=== PATIENT | female | born 1975 | race Two or more races ===

== ENCOUNTER 2016-07-05 02:43 | Emergency (ER) | payer OTHER ==
[~2016-07-05] VITALS: Ht 160 cm; Wt 60.8 kg
[~2016-07-05 02:43] MED LIST: FAMO-63 PO
[2016-07-05 03:00] VITALS: BP 120/66
[2016-07-05 03:30] LABS: BILIRUBIN,URINE NEGATIVE (NEG); GLUCOSE,URINE NEGATIVE (NEG); NITRITE,URINE NEGATIVE (NEG); PROTEIN,URINE NEGATIVE (NEG-TRACE)
[2016-07-05 03:31] LABS: NEG OBC UR NEG; POS OBC UR POS
[2016-07-05 03:40] LABS: BACTERIA,URINE 0 /HPF (0-FEW); SQUAMOUS EPITHELIAL CELL,UR MOD /LPF
--- NOTE | 2016-07-05 04:21 | RAD ---
PQRS STATEMENT One or more of the following individualized dose reduction techniques were utilized for this study: 1.Automated exposure control. 2.Adjustment of the mA and/orkVaccording to patient size. 3.Use of iterative reconstruction technique CT ABDOMEN/PELVIS Indication:diffused abdomen and flank pain; radiates to back. nausea
evaluate kidney stone
rtr-dixon Reason: diffuse abd pain/flank pain radiates to back; nausea. eval. kidney stone / Spl. Instructions: / History: Technique: Multiple contiguous axial images were obtained through the abdomen and pelvis. Coronal reformations were created. Comparison:None Findings: The heart size is normal. The lung bases are clear. Evaluation of the abdominal viscera is limited in the absence of IV contrast.The liver and spleen are normal in size. The gallbladder is nondistended. The pancreas, and adrenal glands are within normal limits. The kidneys are unremarkable. There is no abdominopelvic ascites. Abdominal aorta is normal in caliber. The bowel loops are normal in caliber. The appendix is normal. Urinary bladder is within normal limits. No destructive osseous lesions are identified. There is a chondroid matrix lesion in the proximal right femur. No cortical expansion or periosteal thickening. An intrauterine contraceptive device is in place. Impression: - Negative for obstructive uropathy. - Normal appendix. - No ascites or inflammatory mass. - Chondroid matrix lesion in the right proximal femur. If there is pain associated with this lesion consider MRI. Electronically signed by: Haile Mackey (Jul 05, 2016 04:20:46)
[2016-07-05] MEDS ORDERED: IBUP-1007 PO (04:37)
--- NOTE | 2016-07-05 04:37 | PHYS DOC ---
Past Medical History Past Medical History: No Pertinent History Past Surgical History: Other Additional Past Surgical Histo: l arm surgery Alcohol Use: None Drug Use: None Adult General Chief Complaint Chief Complaint: FLANK PAIN HPI HPI Patient is a 40 year old female with no past medical history presents to the ER today complaining of pain 1 day to both flank area. Patient denies any history of hypertension diabetes liver lung or kidney problems. Patient denies any surgeries to her abdomen or pelvis. Patient does not smoke drink or do any drugs. Patient is currently not on any medications. Patient denies any fevers shaking chills. Patient reports she is nauseous with vomiting. Patient denies any diarrhea or constipation. Patient has any dysuria frequency or urgency. Patient reports she's had intermittent flank pain. Left and right side times approximately one day. She is able tolerate by mouth's well. Review of Systems Review of Systems Constitutional: Denies fever or chills [] Eyes: Denies change in visual acuity, redness, or eye pain [] All other review of systems are negative except as documented in the history of present illness portion. Allergies Allergies Allergies Coded Allergies Type Severity Reaction Last Updated Verified No Known Drug Allergies 10/25/14 No Physical Exam Physical Exam Constitutional: Well developed, well nourished, no acute distress, non-toxic appearance. [] HENT: Normocephalic, atraumatic, bilateral external ears normal, oropharynx moist, no oral exudates, nose normal. [] Eyes: PERRLA, EOMI, conjunctiva normal, no discharge. [] Neck: Normal range of motion, no tenderness, supple, no stridor. [] Cardiovascular:Heart rate regular rhythm, no murmur [] Lungs & Thorax: Bilateral breath sounds clear to auscultation [] Abdomen: Bowel sounds normal, soft, no tenderness, no masses, no pulsatile masses. [] Skin: Warm, dry, no erythema, no rash. [] Back: No tenderness, no CVA tenderness. [] Extremities: No tenderness, no cyanosis, no clubbing, ROM intact, no edema. [] Neurologic: Alert and oriented X 3, normal motor function, normal sensory function, no focal deficits noted. [] Psychologic: Affect normal, judgement normal, mood normal. [] Abdominal exam soft nontender no rebound or guarding. Patient does have some mild tenderness to both flank regions. Patient has no rebound or guarding. Patient does not exhibiting any signs or symptoms of be consistent with an acute surgical abdomen. Current Patient Data Vital Signs Vital Signs Date Time Temp Pulse Resp B/P Pulse Ox O2 Delivery O2 Flow Rate FiO2 07/05/16 03:00 97.9 63 16 120/66 99 Room Air 97.9 Lab Values Laboratory Tests Test 07/05/16 02:49 Urine Collection Type Unknown Urine Color Yellow Urine Clarity Clear Urine pH 6.0 Urine Specific [place] 1.015 Urine Protein Negativemg/dL (NEG-TRACE) Urine Glucose (UA) Negativemg/dL (NEG) Urine Ketones (Stick) Negativemg/dL (NEG) Urine Blood Trace (NEG) Urine Nitrite Negative (NEG) Urine Bilirubin Negative (NEG) Urine Urobilinogen Dipstick 1.0mg/dL (0.2 mg/dL) Urine Leukocyte Esterase Trace (NEG) Urine RBC 1-2/HPF (0-2) Urine WBC 1-4/HPF (0-4) Urine Squamous Epithelial Cells Mod/LPF Urine Bacteria 0/HPF (0-FEW) Urine Mucus Slight/LPF Urine Test Negative (NEG) EKG EKG [] Radiology/Procedures Radiology/Procedures [] CT scan of the abdomen and pelvis revealed no acute pathology. Course & Med Decision Making Course & Med Decision Making Pertinent Labs and Imaging studies reviewed. (See chart for details) [] This is a 40-year-old female who presents to the ER today complaining of vague abdominal and flank discomfort. Patient's workup in the ER is unremarkable. Patient is CT scan that was unremarkable for any acute pathology to her kidneys pancreas liver spleen or appendix. Patient's UA did not reveal any signs or symptoms that would be consistent with a urinary tract infection. Patient be discharged home with ibuprofen and is instructed to follow up with her primary care physician within one to 2 days. Dragon Disclaimer Dragon Disclaimer This electronic medical record was generated, in whole or in part, using a voice recognition dictation system. Departure Departure Impression: Primary Impression: Abdominal pain Disposition: HOME, SELF-CARE Condition: IMPROVED Referrals: NO PCP (PCP) Patient Instructions: Abdominal Pain Scripts Ibuprofen 600 Mg [id number] Mg PO PRN Q6HRS PRN INFLAMMATION #20 TAB Prov:LUNA TORRES MD 07/05/16 LUNA TORRES MD Jul 05, 2016 04:37
== END 2016-07-05 04:50 | disposition home or self-care (01) ==
LOC: ER 02:43
DX: R10.9 Unspecified abdominal pain (principal); R11.2 Nausea with vomiting, unspecified
CPT/HCPCS: 74176; 81001; 81025; 99285-25

== ENCOUNTER 2017-03-20 00:32 | Emergency (ER) | payer SELFPAY ==
[~2017-03-20 00:32] MED LIST changes: +IBUP-1007 PO
[2017-03-20 00:35] VITALS: BP 116/65
--- NOTE | 2017-03-20 01:05 | PHYS DOC ---
Past Medical History Past Medical History: No Pertinent History Past Surgical History: Other Additional Past Surgical Histo: l arm surgery Alcohol Use: None Drug Use: None Adult General Chief Complaint Chief Complaint: OTHER COMPLAINTS HPI HPI Patient is a 41 year old female presents with complaints of not being able to sleep today. Unfortunately we have limited information because the language line does have a reed fixer for her baseline which the patient speaks some Latvian. Patient denies any pain, fever, vomiting. Patient states she is here because she couldn't sleep tonight, she says that recently that is been some recent deaths of people that she knows. Review of Systems Review of Systems Constitutional: Denies fever or chills . Unable to sleep tonight Eyes: Denies change in visual acuity, redness, or eye pain [] HENT: Denies pain Respiratory: Denies cough Cardiovascular: No pain GI: Denies abdominal pain, or vomiting : Denies dysuria or hematuria [] Musculoskeletal: Denies back pain or joint pain [] Integument: Denies rash or skin lesions [] Neurologic: Denies headache, focal weakness or sensory changes [] Endocrine: Denies polyuria or polydipsia [ Allergies Allergies Allergies Coded Allergies Type Severity Reaction Last Updated Verified No Known Drug Allergies 10/25/14 No Physical Exam Physical Exam Constitutional: Well developed, well nourished, no acute distress, non-toxic appearance. [] HENT: Normocephalic, atraumatic,oropharynx moist, no oral exudates, nose normal. [] Eyes: PERRLA, EOMI, conjunctiva normal, no discharge. [] Neck: Normal range of motion, no tenderness, supple, no stridor. No LAD, no meningeal signs Cardiovascular:Heart rate regular rhythm, no murmur, equal pulses, normal perfusion Lungs & Thorax: Bilateral breath sounds clear to auscultation no tachypnea Abdomen: Bowel sounds normal, soft, no tenderness, no masses, no pulsatile masses. [] Skin: Warm, dry, no erythema, no rash. [] Back: No tenderness, no CVA tenderness. [] Extremities: No tenderness, no cyanosis, no CT ROM intact, no edema. [] Neurologic: Alert and oriented X 3, normal motor function, Lasix in the ED with normal gait and without assistance no focal deficits noted. [] Psychologic: Affect normal, mood normal. [] EKG EKG [] Radiology/Procedures Radiology/Procedures [] Course & Med Decision Making Course & Med Decision Making Pertinent Labs and Imaging studies reviewed. (See chart for details) [] Dragon Disclaimer Dragon Disclaimer This electronic medical record was generated, in whole or in part, using a voice recognition dictation system. Departure Departure Impression: Primary Impression: Stress reaction Additional Impression: Insomnia Disposition: 01 HOME, SELF-CARE Condition: STABLE Referrals: NO PCP (PCP) His follow-up with your doctor for recheck and reevaluation in 2 days Patient Instructions: Adjustment Disorder, Insomnia-Brief Problem Qualifiers Diamond MUNSON MD Mar 20, 2017 01:04
[2017-03-20] MEDS ORDERED: LORazepam 1 MG TABLET PO ONE (01:15)
== END 2017-03-20 01:20 | disposition home or self-care (01) ==
LOC: ER 00:32
DX: F43.9 Reaction to severe stress, unspecified (principal); G47.00 Insomnia, unspecified
CPT/HCPCS: 99282

== ENCOUNTER 2017-08-26 22:28 | Emergency (ER) | payer OTHER ==
[2017-08-27] MEDS: IV NORMAL SALINE 1000ML BAG 1,000 ML IV (01:23)
[2017-08-27 01:27] LABS: ADD MAN DIFF? NO
[2017-08-27 01:30] LABS: BASO % 0 % (0-3); EOS # 0.1 x10^3/uL (0.0-0.7); EOS % 1 % (0-3); HEMATOCRIT 39.8 % (36.0-47.0); HEMOGLOBIN 13.5 g/dL (12.0-15.5); LYMPH # 1.6 x10^3/uL (1.0-4.8); LYMPH % 16 % (24-48); MEAN CORPUSCULAR HEMOGLOBIN 30 pg (25-35); MEAN CORPUSCULAR HGB CONC 34 g/dL (31-37); MEAN CORPUSCULAR VOLUME 87 fL (79-100); MONO # 0.5 x10^3/uL (0.0-1.1); MONO % 5 % (0-9); NEUT # 7.7 x10^3uL (1.8-7.7); NEUT % 78 % (31-73); PLATELET COUNT 203 x10^3/uL (140-400); RED BLOOD COUNT 4.57 x10^6/uL (3.50-5.40); WHITE BLOOD COUNT 9.9 x10^3/uL (4.0-11.0)
[2017-08-27 01:31] LABS: BILIRUBIN,URINE NEGATIVE (NEG); CLARITY,URINE CLEAR; COLOR,URINE YELLOW; GLUCOSE,URINE NEGATIVE (NEG); NITRITE,URINE NEGATIVE (NEG); PH,URINE 6.5; PROTEIN,URINE NEGATIVE (NEG-TRACE)
[2017-08-27 01:39] LABS: BACTERIA,URINE 0 /HPF (0-FEW); RBC,URINE 0 /HPF (0-2); SQUAMOUS EPITHELIAL CELL,UR FEW /LPF; WBC,URINE 0 /HPF (0-4)
[2017-08-27 01:40] LABS: ANION GAP 7 (6-14); BLOOD UREA NITROGEN 15 mg/dL (7-20); CALCIUM 9.2 mg/dL (8.5-10.1); CARBON DIOXIDE 27 mmol/L (21-32); CHLORIDE 105 mmol/L (98-107); CREATININE 0.6 mg/dL (0.6-1.0); GFR 110.2; GLUCOSE 103 mg/dL (70-99); POTASSIUM 3.6 mmol/L (3.5-5.1); SODIUM 139 mmol/L (136-145)
[2017-08-27 01:53] LABS: TROPONINI < 0.017 ng/mL (0.000-0.055)
[2017-08-27 01:55] LABS: THYROID STIM HORMONE (TSH) 1.178 uIU/mL (0.358-3.74)
== END 2017-08-27 03:12 | disposition home or self-care (01) ==
LOC: ER 22:28
DX: R42 Dizziness and giddiness (principal); E86.0 Dehydration; R55 Syncope and collapse; R11.0 Nausea
CPT/HCPCS: 36415; 71045; 80048; 81001; 84443; 84484; 85025; 93005; 96360; 96361; 99285-25; J7030

== ENCOUNTER 2018-09-28 01:25 | Inpatient (IN) | payer OTHER ==
[~2018-09-28] VITALS: Ht 160 cm; Wt 65.5 kg
[2018-09-28 02:22] LABS: BASO % 0 % (0-3); EOS % 0 % (0-3); HEMATOCRIT 41.5 % (36.0-47.0); HEMOGLOBIN 13.7 g/dL (12.0-15.5); LYMPH # 1.5 x10^3/uL (1.0-4.8); LYMPH % 15 % (24-48); MEAN CORPUSCULAR HEMOGLOBIN 29 pg (25-35); MEAN CORPUSCULAR HGB CONC 33 g/dL (31-37); MEAN CORPUSCULAR VOLUME 88 fL (79-100); MONO # 0.6 x10^3/uL (0.0-1.1); MONO % 6 % (0-9); NEUT # 7.8 x10^3uL (1.8-7.7); NEUT % 78 % (31-73); PLATELET COUNT 233 x10^3/uL (140-400); RED CELL DISTRIBUTION WIDTH 13.5 % (11.5-14.5)
[2018-09-28 02:23] LABS: BILIRUBIN,URINE NEGATIVE (NEG); CLARITY,URINE CLOUDY; COLOR,URINE YELLOW; NITRITE,URINE NEGATIVE (NEG); PROTEIN,URINE 30 mg/dL (NEG-TRACE)
[2018-09-28 02:30] LABS: AMPHETAMINE/METHAMPHETAMINE NEG (NEG); BARBITURATES NEG (NEG); BENZODIAZEPINES NEG (NEG); CANNABINOIDS NEG (NEG); COCAINE NEG (NEG); METHADONE NEG (NEG); OPIATES NEG (NEG); PHENCYCLIDINE NEG (NEG)
[2018-09-28] MEDS ORDERED: IV NORMAL SALINE 1000ML BAG 1,000 ML IV ONE (02:30)
[2018-09-28 02:32] LABS: BACTERIA,URINE MANY /HPF (0-FEW); RBC,URINE OCC /HPF (0-2); WBC,URINE 20-40 /HPF (0-4)
[2018-09-28 02:33] LABS: SQUAMOUS EPITHELIAL CELL,UR MOD /LPF
[2018-09-28 02:35] LABS: ALBUMIN 4.5 g/dL (3.4-5.0); ALBUMIN/GLOBULIN RATIO 1.1 (1.0-1.7); CREATININE 0.6 mg/dL (0.6-1.0); GFR 109.6; TOTAL BILIRUBIN 0.7 mg/dL (0.2-1.0); TOTAL PROTEIN 8.7 g/dL (6.4-8.2)
[2018-09-28 02:36] LABS: POTASSIUM 2.5 mmol/L (3.5-5.1)
[2018-09-28] MEDS: POTASSIUM CHLORIDE 10MEQ 100 ML IV SCH ×2 (02:46→04:14)
[2018-09-28 03:52] LABS: U PREG PATIENT NEGATIVE (NEG)
--- NOTE | 2018-09-28 04:09 | RAD ---
CT head without contrast HISTORY: Altered mental status, urinary tract infection. PQRS statement: CT scans at this facility use dose reduction including either automated exposure control, iterative reconstructions, and /or weight based radiation dosing via mA and kV modification when appropriate to reduce radiation dose to as low as reasonably achievable. TECHNIQUE: [address] imaging skull base to vertex. FINDINGS: No intracranial hemorrhage, mass, hydrocephalus or infarction. No acute ischemic change. 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 Orbits, mastoids unremarkable. IMPRESSION: No acute intracranial CT abnormality. Electronically signed by: Tyrell Fernandez MD (09/28/2018 4:06 AM) [facility]
--- NOTE | 2018-09-28 04:53 | PHYS DOC ---
Past Medical History Past Medical History: No Pertinent History Past Surgical History: Other Additional Past Surgical Histo: L arm surgery Alcohol Use: None Drug Use: None Adult General Chief Complaint Chief Complaint: PSYCH EVALUATION [facility] HPI Patient is a 42-year-old female who presents with family with concerns of confusion and not eating well for the last few days. Patient's primary language is Hmong and fuse cup expander service was utilized to obtain history. Patient reported no complaints but told the fuse cup expander that she needed prayers. indicates that patient has not been acting appropriately over the last couple of days, has been confused and has not been eating or drinking. There has been no report of vomiting or diarrhea. Patient denies being in any pain. Additional history is limited as patient is very poor historian. Review of Systems Review of Systems Constitutional: Denies fever or chills [] Respiratory: Denies cough or shortness of breath [] Cardiovascular: No additional information not addressed in HPI [] GI: Denies abdominal pain, nausea, vomiting or diarrhea [] Musculoskeletal: Denies back pain or joint pain [] Neurologic: Positive confusion/mental status changes [] All other systems were reviewed and found to be within normal limits, except as documented in this note. Current Medications Current Medications Current Medications Medications (Trade) Dose Ordered Sig/Venkata Start Time Stop Time Status Last Admin Dose Admin Potassium Chloride/Water 100 ml @ 100 mls/hr Q1H 09/28/18 03:00 09/28/18 05:00 DC 09/28/18 04:14 100 MLS/HR Sodium Chloride 1,000 ml @ 1,000 mls/hr 1X ONCE 09/28/18 02:30 09/28/18 03:29 DC 09/28/18 02:21 1,000 MLS/HR Allergies Allergies Allergies Coded Allergies Type Severity Reaction Last Updated Verified No Known Drug Allergies 10/25/14 No Physical Exam Physical Exam Constitutional: Well developed, well nourished, no acute distress, non-toxic appearance. [] HENT: Normocephalic, atraumatic, bilateral external ears normal, oropharynx moist, no oral exudates, nose normal. [] Eyes: PERRLA, EOMI, conjunctiva normal, no discharge. [] Neck: Normal range of motion, no tenderness, supple, no stridor. [] Cardiovascular:Heart rate regular rhythm, no murmur [] Lungs & Thorax: Bilateral breath sounds clear to auscultation [] Abdomen: Bowel sounds normal, soft, no tenderness. [] Skin: Warm, dry, no erythema, no rash. [] Extremities: No tenderness, no cyanosis, no clubbing, ROM intact. [] Neurologic: Disoriented, no focal deficits noted. [] Current Patient Data Vital Signs Vital Signs Date Time Temp Pulse Resp B/P (MAP) Pulse Ox O2 Delivery O2 Flow Rate FiO2 09/28/18 04:30 84 16 129/73 (91) 100 Room Air 09/28/18 02:23 98.2 98.2 Lab Values Laboratory Tests Test 09/28/18 02:15 White Blood Count 10.0 x10^3/uL (4.0-11.0) Red Blood Count 4.70 x10^6/uL (3.50-5.40) Hemoglobin 13.7 g/dL (12.0-15.5) Hematocrit 41.5 % (36.0-47.0) Mean Corpuscular Volume 88 fL (79-100) Mean Corpuscular Hemoglobin 29 pg (25-35) Mean Corpuscular Hemoglobin Concent 33 g/dL (31-37) Red Cell Distribution Width 13.5 % (11.5-14.5) Platelet Count 233 x10^3/uL (140-400) Neutrophils (%) (Auto) 78 % (31-73) H Lymphocytes (%) (Auto) 15 % (24-48) L Monocytes (%) (Auto) 6 % (0-9) Eosinophils (%) (Auto) 0 % (0-3) Basophils (%) (Auto) 0 % (0-3) Neutrophils # (Auto) 7.8 x10^3uL (1.8-7.7) H Lymphocytes # (Auto) 1.5 x10^3/uL (1.0-4.8) Monocytes # (Auto) 0.6 x10^3/uL (0.0-1.1) Eosinophils # (Auto) 0.0 x10^3/uL (0.0-0.7) Basophils # (Auto) 0.0 x10^3/uL (0.0-0.2) Urine Collection Type Unknown Urine Color Yellow Urine Clarity Cloudy Urine pH 6.0 Urine Specific [place] 1.015 Urine Protein 30 mg/dL (NEG-TRACE) Urine Glucose (UA) Negative mg/dL (NEG) Urine Ketones (Stick) 40 mg/dL (NEG) Urine Blood Large (NEG) Urine Nitrite Negative (NEG) Urine Bilirubin Negative (NEG) Urine Urobilinogen Dipstick 1.0 mg/dL (0.2 mg/dL) Urine Leukocyte Esterase Moderate (NEG) Urine RBC Occ /HPF (0-2) Urine WBC 20-40 /HPF (0-4) Urine Squamous Epithelial Cells Mod /LPF Urine Bacteria Many /HPF (0-FEW) Urine Mucus Mod /LPF Urine Test Negative (NEG) Sodium Level 139 mmol/L (136-145) Potassium Level 2.5 mmol/L (3.5-5.1) *L Chloride Level 102 mmol/L (98-107) Carbon Dioxide Level 26 mmol/L (21-32) Anion Gap 11 (6-14) Blood Urea Nitrogen 9 mg/dL (7-20) Creatinine 0.6 mg/dL (0.6-1.0) Estimated GFR (Cockcroft-Gault) 109.6 BUN/Creatinine Ratio 15 (6-20) Glucose Level 128 mg/dL (70-99) H Calcium Level 9.0 mg/dL (8.5-10.1) Magnesium Level 2.0 mg/dL (1.8-2.4) Total Bilirubin 0.7 mg/dL (0.2-1.0) Aspartate Amino Transferase (AST) 16 U/L (15-37) Alanine Aminotransferase (ALT) 14 U/L (14-59) Alkaline Phosphatase 52 U/L (46-116) Total Protein 8.7 g/dL (6.4-8.2) H Albumin 4.5 g/dL (3.4-5.0) Albumin/Globulin Ratio 1.1 (1.0-1.7) Urine Opiates Screen Neg (NEG) Urine Methadone Screen Neg (NEG) Urine Barbiturates Neg (NEG) Urine Phencyclidine Screen Neg (NEG) Urine Amphetamine/Methamphetamine Neg (NEG) Urine Benzodiazepines Screen Neg (NEG) Urine Cocaine Screen Neg (NEG) Urine Cannabinoids Screen Neg (NEG) Urine Ethyl Alcohol Neg (NEG) Laboratory Tests 09/28/18 02:15 Laboratory Tests 09/28/18 02:15 EKG EKG [] Radiology/Procedures Radiology/Procedures [] Impressions: PROCEDURE: CT HEAD WO CONTRAST CT head without contrast HISTORY: Altered mental status, urinary tract infection. PQRS statement: CT scans at this facility use dose reduction including either automated exposure control, iterative reconstructions, and /or weight based radiation dosing via mA and kV modification when appropriate to reduce radiation dose to as low as reasonably achievable. TECHNIQUE: [address] imaging skull base to vertex. FINDINGS: No intracranial hemorrhage, mass, hydrocephalus or infarction. No acute ischemic change. 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 Orbits, mastoids unremarkable. IMPRESSION: No acute intracranial CT abnormality. Electronically signed by: Tyrell Fernandez MD (09/28/2018 4:06 AM) Course & Med Decision Making Course & Med Decision Making Pertinent Labs and Imaging studies reviewed. (See chart for details) [] Dragon Disclaimer Dragon Disclaimer This electronic medical record was generated, in whole or in part, using a voice recognition dictation system. Departure Departure Impression: Primary Impression: Altered mental status Additional Impressions: Hypokalemia UTI (urinary tract infection) Disposition: 09 ADMITTED INPATIENT Admitting Physician: Other (Rosendo) Condition: GOOD Referrals: NO PCP (PCP) Problem Qualifiers Primary Impression: Altered mental status Altered mental status type: disorientation Qualified Codes: R41.0 - Disorientation, unspecified Additional Impressions: UTI (urinary tract infection) Urinary tract infection type: site unspecified Hematuria presence: with hematuria Qualified Codes: N39.0 - Urinary tract infection, site not specified ; R31.9 - Hematuria, unspecified JUN HUDDLESTON Jr. DO Sep 28, 2018 04:53
[2018-09-28] MEDS ORDERED: cefTRIAXone IV Push 1 GM VIAL. IVP ONE (05:30)
[2018-09-28 06:36] VITALS: BP 120/57
[2018-09-28] MEDS: IV NORMAL SALINE 1000ML BAG 1,000 ML IV SCH ×3 (08:41→21:34)
--- NOTE | 2018-09-28 10:11 | NUR ---
K+ still running at shift change, 0700. Rocephine requested for after this was finished at 0800. Talked to Fabienne at 0900, she will send it up as soon as she can.
[2018-09-28 10:35] VITALS: BP 120/79
--- NOTE | 2018-09-28 10:48 | PDOC1 ---
History and Physical Date of Admission Date of Admission DATE: 09/28/18 TIME: 10:48 Identification/Chief Complaint Chief Complaint SEEN IN ER, Patient is a 42-year-old female who presents with family with concerns of confusion and not eating well for the last few days. Patient's primary language is Hmong and [employer] service was utilized to obtain history. Patient reported no complaints but told the farmer [employer] that she needed prayers. indicates that patient has not been acting appropriately over the last couple of days, has been confused and has not been eating or drinking, NOTES NEW BIPOLAR MANIC SYMPTOMS X 3 DAYS, She has not been seeing [facility] X 7 MONTHS Past Medical History Past Medical History Past Medical History Past Medical History: BIPOLAR DISORDER Past Surgical History: Other Additional Past Surgical Histo: L arm surgery Alcohol Use: None Drug Use: None FAMILY HX DEPRESSION Dermatology: No pertinent hx Family History Family History: High Cholestrol, Hypertension Social History Smoke: No ALCOHOL: none Drugs: None, Other (, 4 CHILDREN, IS SUPPORTIVE) Current Problem List Problem List Problems Medical Problems: (1) Altered mental status Status: Acute (2) Hypokalemia Status: Acute (3) UTI (urinary tract infection) Status: Acute Current Medications Current Medications Current Medications Sodium Chloride 1,000 ml @ 1,000 mls/hr 1X ONCE IV Last administered on at 02:21; Start 09/28/18 at 02:30; Stop 09/28/18 at 03:29; Status DC Potassium Chloride/Water 100 ml @ 100 mls/hr Q1H IV Last administered on at 04:14; Start 09/28/18 at 03:00; Stop 09/28/18 at 05:00; Status DC Ceftriaxone Sodium (Rocephin) 1 gm 1X ONCE IVP ; Start 09/28/18 at 05:30; Stop 09/28/18 at 05:31; Status DC Sodium Chloride 1,000 ml @ 125 mls/hr Q8H IV Last administered on 09/28/18at 08 :41; Start 09/28/18 at 05:30; Stop 09/29/18 at 05:29 Active Scripts Active Ibuprofen 600 Mg Tablet 600 Mg PO PRN Q6HRS PRN Pepcid (Famotidine) 20 Mg Tablet 20 Mg PO BID Allergies Allergies: Coded Allergies: No Known Drug Allergies (Unverified , 5/13/15) ROS Review of System Review of Systems Review of Systems Constitutional: Denies fever or chills. [] Eyes: Denies change in visual acuity. [] HENT: Denies nasal congestion or sore throat. [] Respiratory: Denies cough . complaining of shortness of breath. [] Cardiovascular: Denies chest pain or edema. [] GI: Denies abdominal pain, nausea, vomiting, bloody stools or diarrhea. [] : Denies dysuria. [] Musculoskeletal: Denies back pain or joint pain. [] Complaining of generalized fatigue Integument: Denies rash. [] Neurologic: Denies headache, focal weakness or sensory changes. [] Psychiatric: POS anxiety. ACUTE MANIC SYMPTOMS 14 PT ROS OTHERWISE NEG [] General: YES: Fatigue, Appetite PSYCHOLOGICAL ROS: YES: Concentration difficultie, Disorientation, Sleep disturbances Eyes: No Blurry vision, No Decreased vision, No Double vision, No Dry eyes, No Excessive tearing, No Eye Pain, No Itchy Eyes, No Loss of vision, No Photophobia , No Scotomata, No Uses contacts, No Uses glasses, No Other HEENT: No: Heacaches, Visual Changes, Hearing change, Nasal congestion, Nasal discharge, Oral lesions, Sinus pain, Sore Throat, Epistaxis, Sneezing, Snoring, Tinnitus, Vertigo, Vocal changes, Other ALLERGY AND IMMUNOLOGY: No: Hives, Insect Bite Sensitivity, Itchy/Watery Eyes, Nasal Congestion, Post Nasal Drip, Seasonal Allergies, Other Cardiovascular: No Chest Pain, No Palpitations, No Orthopnea, No Paroxysmal Noc. Dyspnea, No Edema, No Lt Headedness, No Other Gastrointestinal: No Nausea, No Vomiting, No Abdominal Pain, No Diarrhea, No Constipation, No Melena, No Hematochezia, No Other Musculoskeletal: No Gait Disturbance, No Joint Pain, No Joint Stiffness, No Joint Swelling, No Muscle Pain, No Muscular Weakness, No Pain In:, No Swelling In:, No Other Neurological: Yes Behavorial Changes Physical Exam Physical Exam Physical Exam Physical Exam Constitutional: Well developed, well nourished, no acute distress, non-toxic appearance. ANXIOUS [] HENT: Normocephalic, atraumatic, bilateral external ears normal, oropharynx moist, no oral exudates, nose normal. [] Eyes: PERRLA, EOMI, conjunctiva normal, no discharge. [] Neck: Normal range of motion, no tenderness, supple, no stridor. [] Cardiovascular:Heart rate regular rhythm, no murmur [] Lungs & Thorax: Bilateral breath sounds clear to auscultation [] Abdomen: Bowel sounds normal, soft, no tenderness. [] Skin: Warm, dry, no erythema, no rash. [] Extremities: No tenderness, no cyanosis, no clubbing, ROM intact. [] Neurologic: Disoriented, no focal deficits noted. [] General: Cooperative, mild distress HEENT: Atraumatic, PERRLA Lungs: Clear to auscultation Heart: RRR, no thrills, no gallops, no murmurs Breasts: Not examined Abdomen: Normal bowel sounds, Soft Rectal Exam: not examined PELVIC: Examination not indicated Extremities: No cyanosis Skin: No rashes Neuro: Normal speech, Cranial nerves 3-12 NL Vitals Vitals Vital Signs Date Time Temp Pulse Resp B/P (MAP) Pulse Ox O2 Delivery O2 Flow Rate FiO2 09/28/18 10:35 98.2 68 17 120/79 (93) 100 Room Air 98.2 Labs Labs Laboratory Tests Test 09/28/18 02:15 White Blood Count 10.0 x10^3/uL (4.0-11.0) Red Blood Count 4.70 x10^6/uL (3.50-5.40) Hemoglobin 13.7 g/dL (12.0-15.5) Hematocrit 41.5 % (36.0-47.0) Mean Corpuscular Volume 88 fL (79-100) Mean Corpuscular Hemoglobin 29 pg (25-35) Mean Corpuscular Hemoglobin Concent 33 g/dL (31-37) Red Cell Distribution Width 13.5 % (11.5-14.5) Platelet Count 233 x10^3/uL (140-400) Neutrophils (%) (Auto) 78 % (31-73) Lymphocytes (%) (Auto) 15 % (24-48) Monocytes (%) (Auto) 6 % (0-9) Eosinophils (%) (Auto) 0 % (0-3) Basophils (%) (Auto) 0 % (0-3) Neutrophils # (Auto) 7.8 x10^3uL (1.8-7.7) Lymphocytes # (Auto) 1.5 x10^3/uL (1.0-4.8) Monocytes # (Auto) 0.6 x10^3/uL (0.0-1.1) Eosinophils # (Auto) 0.0 x10^3/uL (0.0-0.7) Basophils # (Auto) 0.0 x10^3/uL (0.0-0.2) Urine Collection Type Unknown Urine Color Yellow Urine Clarity Cloudy Urine pH 6.0 Urine Specific [place] 1.015 Urine Protein 30 mg/dL (NEG-TRACE) Urine Glucose (UA) Negative mg/dL (NEG) Urine Ketones (Stick) 40 mg/dL (NEG) Urine Blood Large (NEG) Urine Nitrite Negative (NEG) Urine Bilirubin Negative (NEG) Urine Urobilinogen Dipstick 1.0 mg/dL (0.2 mg/dL) Urine Leukocyte Esterase Moderate (NEG) Urine RBC Occ /HPF (0-2) Urine WBC 20-40 /HPF (0-4) Urine Squamous Epithelial Cells Mod /LPF Urine Bacteria Many /HPF (0-FEW) Urine Mucus Mod /LPF Urine Test Negative (NEG) Sodium Level 139 mmol/L (136-145) Potassium Level 2.5 mmol/L (3.5-5.1) Chloride Level 102 mmol/L (98-107) Carbon Dioxide Level 26 mmol/L (21-32) Anion Gap 11 (6-14) Blood Urea Nitrogen 9 mg/dL (7-20) Creatinine 0.6 mg/dL (0.6-1.0) Estimated GFR (Cockcroft-Gault) 109.6 BUN/Creatinine Ratio 15 (6-20) Glucose Level 128 mg/dL (70-99) Calcium Level 9.0 mg/dL (8.5-10.1) Magnesium Level 2.0 mg/dL (1.8-2.4) Total Bilirubin 0.7 mg/dL (0.2-1.0) Aspartate Amino Transf (AST/SGOT) 16 U/L (15-37) Alanine Aminotransferase (ALT/SGPT) 14 U/L (14-59) Alkaline Phosphatase 52 U/L (46-116) Total Protein 8.7 g/dL (6.4-8.2) Albumin 4.5 g/dL (3.4-5.0) Albumin/Globulin Ratio 1.1 (1.0-1.7) Urine Opiates Screen Neg (NEG) Urine Methadone Screen Neg (NEG) Urine Barbiturates Neg (NEG) Urine Phencyclidine Screen Neg (NEG) Urine Amphetamine/Methamphetamine Neg (NEG) Urine Benzodiazepines Screen Neg (NEG) Urine Cocaine Screen Neg (NEG) Urine Cannabinoids Screen Neg (NEG) Urine Ethyl Alcohol Neg (NEG) Laboratory Tests Test 09/28/18 02:15 White Blood Count 10.0 x10^3/uL (4.0-11.0) Red Blood Count 4.70 x10^6/uL (3.50-5.40) Hemoglobin 13.7 g/dL (12.0-15.5) Hematocrit 41.5 % (36.0-47.0) Mean Corpuscular Volume 88 fL (79-100) Mean Corpuscular Hemoglobin 29 pg (25-35) Mean Corpuscular Hemoglobin Concent 33 g/dL (31-37) Red Cell Distribution Width 13.5 % (11.5-14.5) Platelet Count 233 x10^3/uL (140-400) Neutrophils (%) (Auto) 78 % (31-73) Lymphocytes (%) (Auto) 15 % (24-48) Monocytes (%) (Auto) 6 % (0-9) Eosinophils (%) (Auto) 0 % (0-3) Basophils (%) (Auto) 0 % (0-3) Neutrophils # (Auto) 7.8 x10^3uL (1.8-7.7) Lymphocytes # (Auto) 1.5 x10^3/uL (1.0-4.8) Monocytes # (Auto) 0.6 x10^3/uL (0.0-1.1) Eosinophils # (Auto) 0.0 x10^3/uL (0.0-0.7) Basophils # (Auto) 0.0 x10^3/uL (0.0-0.2) Urine Collection Type Unknown Urine Color Yellow Urine Clarity Cloudy Urine pH 6.0 Urine Specific [place] 1.015 Urine Protein 30 mg/dL (NEG-TRACE) Urine Glucose (UA) Negative mg/dL (NEG) Urine Ketones (Stick) 40 mg/dL (NEG) Urine Blood Large (NEG) Urine Nitrite Negative (NEG) Urine Bilirubin Negative (NEG) Urine Urobilinogen Dipstick 1.0 mg/dL (0.2 mg/dL) Urine Leukocyte Esterase Moderate (NEG) Urine RBC Occ /HPF (0-2) Urine WBC 20-40 /HPF (0-4) Urine Squamous Epithelial Cells Mod /LPF Urine Bacteria Many /HPF (0-FEW) Urine Mucus Mod /LPF Urine Test Negative (NEG) Sodium Level 139 mmol/L (136-145) Potassium Level 2.5 mmol/L (3.5-5.1) Chloride Level 102 mmol/L (98-107) Carbon Dioxide Level 26 mmol/L (21-32) Anion Gap 11 (6-14) Blood Urea Nitrogen 9 mg/dL (7-20) Creatinine 0.6 mg/dL (0.6-1.0) Estimated GFR (Cockcroft-Gault) 109.6 BUN/Creatinine Ratio 15 (6-20) Glucose Level 128 mg/dL (70-99) Calcium Level 9.0 mg/dL (8.5-10.1) Magnesium Level 2.0 mg/dL (1.8-2.4) Total Bilirubin 0.7 mg/dL (0.2-1.0) Aspartate Amino Transf (AST/SGOT) 16 U/L (15-37) Alanine Aminotransferase (ALT/SGPT) 14 U/L (14-59) Alkaline Phosphatase 52 U/L (46-116) Total Protein 8.7 g/dL (6.4-8.2) Albumin 4.5 g/dL (3.4-5.0) Albumin/Globulin Ratio 1.1 (1.0-1.7) Urine Opiates Screen Neg (NEG) Urine Methadone Screen Neg (NEG) Urine Barbiturates Neg (NEG) Urine Phencyclidine Screen Neg (NEG) Urine Amphetamine/Methamphetamine Neg (NEG) Urine Benzodiazepines Screen Neg (NEG) Urine Cocaine Screen Neg (NEG) Urine Cannabinoids Screen Neg (NEG) Urine Ethyl Alcohol Neg (NEG) Images Images STATUS: REG ER ORD. PHYSICIAN: JUN HUDDLESTON Jr. DO REASON: AMS PROCEDURE: CT HEAD WO CONTRAST CT head without contrast HISTORY: Altered mental status, urinary tract infection. PQRS statement: CT scans at this facility use dose reduction including either automated exposure control, iterative reconstructions, and /or weight based radiation dosing via mA and kV modification when appropriate to reduce radiation dose to as low as reasonably achievable. TECHNIQUE: [address] imaging skull base to vertex. FINDINGS: No intracranial hemorrhage, mass, hydrocephalus or infarction. No acute ischemic change. 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 Orbits, mastoids unremarkable. IMPRESSION: No acute intracranial CT abnormality. Electronically signed by: Tyrell Fernandez MD (09/28/2018 4:06 AM) VTE Prophylaxis Ordered VTE Prophylaxis Devices: Yes VTE Pharmacological Prophylaxi: Yes Assessment/Plan Assessment/Plan Impression: Altered mental status ACUTE LIBBY Hypokalemia UTI (urinary tract infection) HX BIPOLAR DISEASE NONCOMPLIANCE WITH PSYCH F/U No intracranial hemorrhage, mass, hydrocephalus or infarction. No acute ischemic change. 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 PLAN PAT TEAM TO SEE NEUROLOGY CONSULT T4 DVT PROPHYLAXIS HOME MEDS IV ROCEPHIСЕРГЕЙ MORROW MD Sep 28, 2018 10:48
[2018-09-28] MEDS ORDERED: IBUPROFEN 200 MG TABLET. PO PRN (13:45)
[2018-09-28] MEDS ORDERED: POTASSIUM CHLORIDE 20 MEQ TABLET.ER. PO ONE (13:45)
[2018-09-28 14:30] LABS: CALCIUM 8.9 mg/dL (8.5-10.1); CREATININE 0.6 mg/dL (0.6-1.0); GFR 109.6
--- NOTE | 2018-09-28 14:35 | PDOC2 ---
NEUROLOGY CONSULT Date of Admission Date of Admission DATE: 09/28/18 TIME: 14:26 Reason for Consult Reason for Consult: Altered mental status, noel Referring Physician Referring Physician: Dr. Dodge Source Source: Caregiver (, refugee [place]), Patient History of Present Illness History of Present Illness The patient is a 42-year-old right-handed female with known bipolar disorder who last took injection from [facility] 7 months ago and then decided to go off of them because they made her feel funny and maybe caused some muscle issues. Patient did well until the last 3 days when she stopped eating and has been not sleeping. recognized this as a manifestation of the bipolar problem and brought her to the emergency department. Nothing in her history evokes any neurological problems such as numbness, weakness, dysarthria, dysphagia, diplopia, headache. Past Medical History Psych: Bipolar, Schizophrenia Past Surgical History Past Surgical History: No pertinent history Family History Family History: No pertinent hx Social History Social History , works in a [employer] store, no alcohol or tobacco Current Medications Current Medications Current Medications Sodium Chloride 1,000 ml @ 1,000 mls/hr 1X ONCE IV Last administered on at 02:21; Start 09/28/18 at 02:30; Stop 09/28/18 at 03:29; Status DC Potassium Chloride/Water 100 ml @ 100 mls/hr Q1H IV Last administered on at 04:14; Start 09/28/18 at 03:00; Stop 09/28/18 at 05:00; Status DC Ceftriaxone Sodium (Rocephin) 1 gm 1X ONCE IVP Last administered on 09/28/18at 10:59; Start 09/28/18 at 05:30; Stop 09/28/18 at 05:31; Status DC Sodium Chloride 1,000 ml @ 125 mls/hr Q8H IV Last administered on 09/28/18at 08 :41; Start 09/28/18 at 05:30; Stop 09/29/18 at 05:29 Famotidine (Pepcid) 20 mg BID PO ; Start 09/28/18 at 21:00 Ibuprofen (Motrin) 600 mg PRN Q6HRS PRN PO INFLAMMATION; Start 09/28/18 at 13: 45 Ceftriaxone Sodium (Rocephin) 1 gm Q24H IVP ; Start 09/28/18 at 14:00 Potassium Chloride (Klor-Con) 40 meq 1X ONCE PO ; Start 09/28/18 at 13:45; Stop 09/28/18 at 13:46; Status DC Potassium Chloride (Klor-Con) 20 meq DAILYWBKFT PO ; Start 09/29/18 at 08:00 Active Scripts Active Ibuprofen 600 Mg Tablet 600 Mg PO PRN Q6HRS PRN Pepcid (Famotidine) 20 Mg Tablet 20 Mg PO BID Allergies Allergies: Coded Allergies: No Known Drug Allergies (Unverified , 10/25/14) ROS Review of System Negative for fever, chills, weight loss, shortness of breath, chest pain, indigestion, hematochezia, melena, and dysuria. Full 14-point review of systems is negative. Physical Exam Physical Examination General: Well-developed, well-nourished Female in no acute distress HEENT: Normocephalic andatraumatic. Temporal arteriespulsatile and nontender. Neck: Supple without bruit, no meningismus Musculoskeletal: Stability:see neurologic. Gait exam:see neurologic. Tone:see neurologic. Strength:see neurologic. Neurological: Mental Status:orientation, memory, attention span/concentration, language, fund of knowledge normal, except bizarrely says she does not know how many children she has. [place] language is Hmong, but she understood all [place] instructions. Cranial Nerves:Pupils equal and reactive to light, extraocular movements areintact, visual yancey are full to confrontation. Facial sensation is normal. There is no facial asymmetry. Vestibulo-ocular reflex is intact. Palate elevates and tongue protrudes in midline. All other cranial related problems are negative except as mentioned before.Reflexes:2+ and symmetric with flexor plantar responses. Motor:5/5 strength with normal tone and bulk. Coordination:Finger-nose finger and [id number] testing are normal. Rapid alternating movements and fine finger movements are intact. Gait:Normal, including tandem. Sensory:Normal pinprick, vibration, light touch, proprioception. Vitals VITALS Vital Signs Date Time Temp Pulse Resp B/P (MAP) Pulse Ox O2 Delivery O2 Flow Rate FiO2 09/28/18 10:35 98.2 68 17 120/79 (93) 100 Room Air 98.2 Labs Labs Laboratory Tests Test 09/28/18 02:15 White Blood Count 10.0 x10^3/uL (4.0-11.0) Red Blood Count 4.70 x10^6/uL (3.50-5.40) Hemoglobin 13.7 g/dL (12.0-15.5) Hematocrit 41.5 % (36.0-47.0) Mean Corpuscular Volume 88 fL (79-100) Mean Corpuscular Hemoglobin 29 pg (25-35) Mean Corpuscular Hemoglobin Concent 33 g/dL (31-37) Red Cell Distribution Width 13.5 % (11.5-14.5) Platelet Count 233 x10^3/uL (140-400) Neutrophils (%) (Auto) 78 % (31-73) Lymphocytes (%) (Auto) 15 % (24-48) Monocytes (%) (Auto) 6 % (0-9) Eosinophils (%) (Auto) 0 % (0-3) Basophils (%) (Auto) 0 % (0-3) Neutrophils # (Auto) 7.8 x10^3uL (1.8-7.7) Lymphocytes # (Auto) 1.5 x10^3/uL (1.0-4.8) Monocytes # (Auto) 0.6 x10^3/uL (0.0-1.1) Eosinophils # (Auto) 0.0 x10^3/uL (0.0-0.7) Basophils # (Auto) 0.0 x10^3/uL (0.0-0.2) Urine Collection Type Unknown Urine Color Yellow Urine Clarity Cloudy Urine pH 6.0 Urine Specific [place] 1.015 Urine Protein 30 mg/dL (NEG-TRACE) Urine Glucose (UA) Negative mg/dL (NEG) Urine Ketones (Stick) 40 mg/dL (NEG) Urine Blood Large (NEG) Urine Nitrite Negative (NEG) Urine Bilirubin Negative (NEG) Urine Urobilinogen Dipstick 1.0 mg/dL (0.2 mg/dL) Urine Leukocyte Esterase Moderate (NEG) Urine RBC Occ /HPF (0-2) Urine WBC 20-40 /HPF (0-4) Urine Squamous Epithelial Cells Mod /LPF Urine Bacteria Many /HPF (0-FEW) Urine Mucus Mod /LPF Urine Test Negative (NEG) Sodium Level 139 mmol/L (136-145) Potassium Level 2.5 mmol/L (3.5-5.1) Chloride Level 102 mmol/L (98-107) Carbon Dioxide Level 26 mmol/L (21-32) Anion Gap 11 (6-14) Blood Urea Nitrogen 9 mg/dL (7-20) Creatinine 0.6 mg/dL (0.6-1.0) Estimated GFR (Cockcroft-Gault) 109.6 BUN/Creatinine Ratio 15 (6-20) Glucose Level 128 mg/dL (70-99) Calcium Level 9.0 mg/dL (8.5-10.1) Magnesium Level 2.0 mg/dL (1.8-2.4) Total Bilirubin 0.7 mg/dL (0.2-1.0) Aspartate Amino Transf (AST/SGOT) 16 U/L (15-37) Alanine Aminotransferase (ALT/SGPT) 14 U/L (14-59) Alkaline Phosphatase 52 U/L (46-116) Total Protein 8.7 g/dL (6.4-8.2) Albumin 4.5 g/dL (3.4-5.0) Albumin/Globulin Ratio 1.1 (1.0-1.7) Urine Opiates Screen Neg (NEG) Urine Methadone Screen Neg (NEG) Urine Barbiturates Neg (NEG) Urine Phencyclidine Screen Neg (NEG) Urine Amphetamine/Methamphetamine Neg (NEG) Urine Benzodiazepines Screen Neg (NEG) Urine Cocaine Screen Neg (NEG) Urine Cannabinoids Screen Neg (NEG) Urine Ethyl Alcohol Neg (NEG) Laboratory Tests Test 09/28/18 02:15 White Blood Count 10.0 x10^3/uL (4.0-11.0) Red Blood Count 4.70 x10^6/uL (3.50-5.40) Hemoglobin 13.7 g/dL (12.0-15.5) Hematocrit 41.5 % (36.0-47.0) Mean Corpuscular Volume 88 fL (79-100) Mean Corpuscular Hemoglobin 29 pg (25-35) Mean Corpuscular Hemoglobin Concent 33 g/dL (31-37) Red Cell Distribution Width 13.5 % (11.5-14.5) Platelet Count 233 x10^3/uL (140-400) Neutrophils (%) (Auto) 78 % (31-73) Lymphocytes (%) (Auto) 15 % (24-48) Monocytes (%) (Auto) 6 % (0-9) Eosinophils (%) (Auto) 0 % (0-3) Basophils (%) (Auto) 0 % (0-3) Neutrophils # (Auto) 7.8 x10^3uL (1.8-7.7) Lymphocytes # (Auto) 1.5 x10^3/uL (1.0-4.8) Monocytes # (Auto) 0.6 x10^3/uL (0.0-1.1) Eosinophils # (Auto) 0.0 x10^3/uL (0.0-0.7) Basophils # (Auto) 0.0 x10^3/uL (0.0-0.2) Urine Collection Type Unknown Urine Color Yellow Urine Clarity Cloudy Urine pH 6.0 Urine Specific [place] 1.015 Urine Protein 30 mg/dL (NEG-TRACE) Urine Glucose (UA) Negative mg/dL (NEG) Urine Ketones (Stick) 40 mg/dL (NEG) Urine Blood Large (NEG) Urine Nitrite Negative (NEG) Urine Bilirubin Negative (NEG) Urine Urobilinogen Dipstick 1.0 mg/dL (0.2 mg/dL) Urine Leukocyte Esterase Moderate (NEG) Urine RBC Occ /HPF (0-2) Urine WBC 20-40 /HPF (0-4) Urine Squamous Epithelial Cells Mod /LPF Urine Bacteria Many /HPF (0-FEW) Urine Mucus Mod /LPF Urine Test Negative (NEG) Sodium Level 139 mmol/L (136-145) Potassium Level 2.5 mmol/L (3.5-5.1) Chloride Level 102 mmol/L (98-107) Carbon Dioxide Level 26 mmol/L (21-32) Anion Gap 11 (6-14) Blood Urea Nitrogen 9 mg/dL (7-20) Creatinine 0.6 mg/dL (0.6-1.0) Estimated GFR (Cockcroft-Gault) 109.6 BUN/Creatinine Ratio 15 (6-20) Glucose Level 128 mg/dL (70-99) Calcium Level 9.0 mg/dL (8.5-10.1) Magnesium Level 2.0 mg/dL (1.8-2.4) Total Bilirubin 0.7 mg/dL (0.2-1.0) Aspartate Amino Transf (AST/SGOT) 16 U/L (15-37) Alanine Aminotransferase (ALT/SGPT) 14 U/L (14-59) Alkaline Phosphatase 52 U/L (46-116) Total Protein 8.7 g/dL (6.4-8.2) Albumin 4.5 g/dL (3.4-5.0) Albumin/Globulin Ratio 1.1 (1.0-1.7) Urine Opiates Screen Neg (NEG) Urine Methadone Screen Neg (NEG) Urine Barbiturates Neg (NEG) Urine Phencyclidine Screen Neg (NEG) Urine Amphetamine/Methamphetamine Neg (NEG) Urine Benzodiazepines Screen Neg (NEG) Urine Cocaine Screen Neg (NEG) Urine Cannabinoids Screen Neg (NEG) Urine Ethyl Alcohol Neg (NEG) Images Images CT head without contrast No intracranial hemorrhage, mass, hydrocephalus or infarction. No acute ischemic change. 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 Orbits, mastoids unremarkable. IMPRESSION: No acute intracranial CT abnormality. Assessment/Plan Assessment/Plan Impression: Episode of noel in a patient with known bipolar disorder and schizophrenia. No neurological issues. Recommendations: Psychiatric assessment team has been contacted. No neurological treatments or testing required. Discussed with patient's as well as liaison from the [facility] that has been aiding the family Thank you for letting me help with the patient's care. PRECIOUS VOSS MD Sep 28, 2018 14:35
[2018-09-28 14:36] LABS: POTASSIUM 2.9 mmol/L (3.5-5.1)
[2018-09-28] MEDS: cefTRIAXone IV Push 1 GM VIAL. IVP SCH (14:40)
[2018-09-28 15:00] VITALS: BP 137/77
--- NOTE | 2018-09-28 15:58 | NUR ---
DANA spoke with Philly from PAT team who visited pt. Philly reported there is a cultural barrier in addressing pt's mental health. Philly was able to contact pt's lead case manager in the community and they will be following up with pt after dc to connect pt with mental health services. RN notified.
--- NOTE | 2018-09-28 18:19 | NUR ---
Patient refusing heart monitor. Educated her on risks and benefits. Will give her some time to think on it, and will attempt to place it back on again shortly.
[2018-09-28] MEDS: FAMOTIDINE 20 MG TABLET. PO SCH (21:00)
[2018-09-28] MEDS: POTASSIUM CHLORIDE 20 MEQ TABLET.ER. PO ONE ×2 (21:28→21:37)
[2018-09-28] MEDS ORDERED: OLANZapine 5 MG TABLET PO PRN (21:30)
--- NOTE | 2018-09-28 21:47 | NUR ---
Pt very anxious and refusing vitals, labs, tele, and meds at this time. Dr Dodge notified of pt's refusal; okay for potassium to be rechecked in morning. Family friend Lanette currently at bedside encouraging pt to have labs drawn but pt still refusing, states "I want to go home." Education provided to pt regarding potassium and need for repeat labs and tele monitor. Pt still refusing. Will place tele if pt becomes agreeable.
[2018-09-28 23:00] VITALS: BP 130/85
[2018-09-29] MEDS: IV NORMAL SALINE 1000ML BAG 1,000 ML IV SCH (01:22)
[2018-09-29 05:20] LABS: BASO % 0 % (0-3); EOS # 0.1 x10^3/uL (0.0-0.7); EOS % 1 % (0-3); HEMATOCRIT 39.2 % (36.0-47.0); LYMPH # 1.6 x10^3/uL (1.0-4.8); LYMPH % 17 % (24-48); MEAN CORPUSCULAR HEMOGLOBIN 30 pg (25-35); MEAN CORPUSCULAR HGB CONC 33 g/dL (31-37); MEAN CORPUSCULAR VOLUME 89 fL (79-100); MONO # 0.7 x10^3/uL (0.0-1.1); MONO % 7 % (0-9); NEUT # 7.3 x10^3uL (1.8-7.7); NEUT % 75 % (31-73); PLATELET COUNT 205 x10^3/uL (140-400); RED CELL DISTRIBUTION WIDTH 13.5 % (11.5-14.5); WHITE BLOOD COUNT 9.7 x10^3/uL (4.0-11.0)
[2018-09-29 05:47] LABS: CALCIUM 8.3 mg/dL (8.5-10.1); CREATININE 0.5 mg/dL (0.6-1.0); GFR 135.3; POTASSIUM 3.3 mmol/L (3.5-5.1)
[2018-09-29 07:00] VITALS: BP 127/78
[2018-09-29] MEDS ORDERED: POTASSIUM CHLORIDE 20 MEQ TABLET.ER. PO SCH (08:00)
[2018-09-29] MEDS: FAMOTIDINE 20 MG TABLET. PO SCH (09:33)
--- NOTE | 2018-09-29 10:16 | PDOC ---
PROGRESS NOTES History of Present Illness History of Present Illness VTE Prophylaxis Ordered VTE Prophylaxis Devices: Yes VTE Pharmacological Prophylaxi: Yes Assessment/Plan Assessment/Plan Impression: Altered mental status ACUTE LIBBY severe acute malnutrition Hypokalemia, correcting UTI (urinary tract infection) HX BIPOLAR DISEASE NONCOMPLIANCE WITH PSYCH F/U No intracranial hemorrhage, mass, hydrocephalus or infarction. No acute ischemic change. 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 09/29 still not eating or drinking fluids, withdrawn, noncooperative. , appears to have loose associations with reality, false perceptions of disease state PLAN zyprexa 5 mg po daily, ativan 1 mg po q 6 hrs prn and q hs anxiety PAT TEAM TO SEE NEUROLOGY CONSULT T4 DVT PROPHYLAXIS HOME MEDS IV ROCEPHIN po k 42 min pt exam, chart review, > 50% of time spent with exam, chart review, pt care coordination Vitals Vitals Vital Signs Date Time Temp Pulse Resp B/P (MAP) Pulse Ox O2 Delivery O2 Flow Rate FiO2 09/29/18 07:00 99.0 92 18 127/78 (94) 100 Room Air 99.0 Physical Exam General: Alert, Cooperative, mild distress, moderate distress Heart: Regular rate, No murmurs Lungs: Clear Abdomen: Normal bowel sounds, Soft, No tenderness, No hepatosplenomegaly Extremities: No cyanosis, No edema, Normal pulses, No tenderness/swelling Skin: No rashes Labs LABS Laboratory Tests Test 09/28/18 22:30 09/29/18 04:25 Potassium Level 3.4 mmol/L (3.5-5.1) 3.3 mmol/L (3.5-5.1) White Blood Count 9.7 x10^3/uL (4.0-11.0) Red Blood Count 4.40 x10^6/uL (3.50-5.40) Hemoglobin 13.0 g/dL (12.0-15.5) Hematocrit 39.2 % (36.0-47.0) Mean Corpuscular Volume 89 fL (79-100) Mean Corpuscular Hemoglobin 30 pg (25-35) Mean Corpuscular Hemoglobin Concent 33 g/dL (31-37) Red Cell Distribution Width 13.5 % (11.5-14.5) Platelet Count 205 x10^3/uL (140-400) Neutrophils (%) (Auto) 75 % (31-73) Lymphocytes (%) (Auto) 17 % (24-48) Monocytes (%) (Auto) 7 % (0-9) Eosinophils (%) (Auto) 1 % (0-3) Basophils (%) (Auto) 0 % (0-3) Neutrophils # (Auto) 7.3 x10^3uL (1.8-7.7) Lymphocytes # (Auto) 1.6 x10^3/uL (1.0-4.8) Monocytes # (Auto) 0.7 x10^3/uL (0.0-1.1) Eosinophils # (Auto) 0.1 x10^3/uL (0.0-0.7) Basophils # (Auto) 0.0 x10^3/uL (0.0-0.2) Sodium Level 140 mmol/L (136-145) Chloride Level 104 mmol/L (98-107) Carbon Dioxide Level 24 mmol/L (21-32) Anion Gap 12 (6-14) Blood Urea Nitrogen 5 mg/dL (7-20) Creatinine 0.5 mg/dL (0.6-1.0) Estimated GFR (Cockcroft-Gault) 135.3 Glucose Level 95 mg/dL (70-99) Calcium Level 8.3 mg/dL (8.5-10.1) Assessment and Plan Assessmemt and Plan Problems Medical Problems: (1) Altered mental status Status: Acute (2) Hypokalemia Status: Acute (3) UTI (urinary tract infection) Status: Acute Comment Review of Relevant I have reviewed the following items zonia (where applicable) has been applied. Labs Laboratory Tests Test 09/28/18 02:15 09/28/18 22:30 09/29/18 04:25 White Blood Count 10.0 x10^3/uL (4.0-11.0) 9.7 x10^3/uL (4.0-11.0) Red Blood Count 4.70 x10^6/uL (3.50-5.40) 4.40 x10^6/uL (3.50-5.40) Hemoglobin 13.7 g/dL (12.0-15.5) 13.0 g/dL (12.0-15.5) Hematocrit 41.5 % (36.0-47.0) 39.2 % (36.0-47.0) Mean Corpuscular Volume 88 fL (79-100) 89 fL (79-100) Mean Corpuscular Hemoglobin 29 pg (25-35) 30 pg (25-35) Mean Corpuscular Hemoglobin Concent 33 g/dL (31-37) 33 g/dL (31-37) Red Cell Distribution Width 13.5 % (11.5-14.5) 13.5 % (11.5-14.5) Platelet Count 233 x10^3/uL (140-400) 205 x10^3/uL (140-400) Neutrophils (%) (Auto) 78 % (31-73) 75 % (31-73) Lymphocytes (%) (Auto) 15 % (24-48) 17 % (24-48) Monocytes (%) (Auto) 6 % (0-9) 7 % (0-9) Eosinophils (%) (Auto) 0 % (0-3) 1 % (0-3) Basophils (%) (Auto) 0 % (0-3) 0 % (0-3) Neutrophils # (Auto) 7.8 x10^3uL (1.8-7.7) 7.3 x10^3uL (1.8-7.7) Lymphocytes # (Auto) 1.5 x10^3/uL (1.0-4.8) 1.6 x10^3/uL (1.0-4.8) Monocytes # (Auto) 0.6 x10^3/uL (0.0-1.1) 0.7 x10^3/uL (0.0-1.1) Eosinophils # (Auto) 0.0 x10^3/uL (0.0-0.7) 0.1 x10^3/uL (0.0-0.7) Basophils # (Auto) 0.0 x10^3/uL (0.0-0.2) 0.0 x10^3/uL (0.0-0.2) Urine Collection Type Unknown Urine Color Yellow Urine Clarity Cloudy Urine pH 6.0 Urine Specific [place] 1.015 Urine Protein 30 mg/dL (NEG-TRACE) Urine Glucose (UA) Negative mg/dL (NEG) Urine Ketones (Stick) 40 mg/dL (NEG) Urine Blood Large (NEG) Urine Nitrite Negative (NEG) Urine Bilirubin Negative (NEG) Urine Urobilinogen Dipstick 1.0 mg/dL (0.2 mg/dL) Urine Leukocyte Esterase Moderate (NEG) Urine RBC Occ /HPF (0-2) Urine WBC 20-40 /HPF (0-4) Urine Squamous Epithelial Cells Mod /LPF Urine Bacteria Many /HPF (0-FEW) Urine Mucus Mod /LPF Urine Test Negative (NEG) Sodium Level 142 mmol/L (136-145) 140 mmol/L (136-145) Potassium Level 2.9 mmol/L (3.5-5.1) 3.4 mmol/L (3.5-5.1) 3.3 mmol/L (3.5-5.1) Chloride Level 102 mmol/L (98-107) 104 mmol/L (98-107) Carbon Dioxide Level 26 mmol/L (21-32) 24 mmol/L (21-32) Anion Gap 14 (6-14) 12 (6-14) Blood Urea Nitrogen 9 mg/dL (7-20) 5 mg/dL (7-20) Creatinine 0.6 mg/dL (0.6-1.0) 0.5 mg/dL (0.6-1.0) Estimated GFR (Cockcroft-Gault) 109.6 135.3 BUN/Creatinine Ratio 15 (6-20) Glucose Level 129 mg/dL (70-99) 95 mg/dL (70-99) Calcium Level 8.9 mg/dL (8.5-10.1) 8.3 mg/dL (8.5-10.1) Magnesium Level 2.0 mg/dL (1.8-2.4) Total Bilirubin 0.7 mg/dL (0.2-1.0) Aspartate Amino Transf (AST/SGOT) 16 U/L (15-37) Alanine Aminotransferase (ALT/SGPT) 14 U/L (14-59) Alkaline Phosphatase 52 U/L (46-116) Total Protein 8.7 g/dL (6.4-8.2) Albumin 4.5 g/dL (3.4-5.0) Albumin/Globulin Ratio 1.1 (1.0-1.7) Free Thyroxine 1.38 ng/dL (0.76-1.46) Urine Opiates Screen Neg (NEG) Urine Methadone Screen Neg (NEG) Urine Barbiturates Neg (NEG) Urine Phencyclidine Screen Neg (NEG) Urine Amphetamine/Methamphetamine Neg (NEG) Urine Benzodiazepines Screen Neg (NEG) Urine Cocaine Screen Neg (NEG) Urine Cannabinoids Screen Neg (NEG) Urine Ethyl Alcohol Neg (NEG) Treponema pallidum Antibody Nonreactive (Nonreactive) Laboratory Tests Test 09/28/18 22:30 09/29/18 04:25 Potassium Level 3.4 mmol/L (3.5-5.1) 3.3 mmol/L (3.5-5.1) White Blood Count 9.7 x10^3/uL (4.0-11.0) Red Blood Count 4.40 x10^6/uL (3.50-5.40) Hemoglobin 13.0 g/dL (12.0-15.5) Hematocrit 39.2 % (36.0-47.0) Mean Corpuscular Volume 89 fL (79-100) Mean Corpuscular Hemoglobin 30 pg (25-35) Mean Corpuscular Hemoglobin Concent 33 g/dL (31-37) Red Cell Distribution Width 13.5 % (11.5-14.5) Platelet Count 205 x10^3/uL (140-400) Neutrophils (%) (Auto) 75 % (31-73) Lymphocytes (%) (Auto) 17 % (24-48) Monocytes (%) (Auto) 7 % (0-9) Eosinophils (%) (Auto) 1 % (0-3) Basophils (%) (Auto) 0 % (0-3) Neutrophils # (Auto) 7.3 x10^3uL (1.8-7.7) Lymphocytes # (Auto) 1.6 x10^3/uL (1.0-4.8) Monocytes # (Auto) 0.7 x10^3/uL (0.0-1.1) Eosinophils # (Auto) 0.1 x10^3/uL (0.0-0.7) Basophils # (Auto) 0.0 x10^3/uL (0.0-0.2) Sodium Level 140 mmol/L (136-145) Chloride Level 104 mmol/L (98-107) Carbon Dioxide Level 24 mmol/L (21-32) Anion Gap 12 (6-14) Blood Urea Nitrogen 5 mg/dL (7-20) Creatinine 0.5 mg/dL (0.6-1.0) Estimated GFR (Cockcroft-Gault) 135.3 Glucose Level 95 mg/dL (70-99) Calcium Level 8.3 mg/dL (8.5-10.1) Medications Current Medications Sodium Chloride 1,000 ml @ 1,000 mls/hr 1X ONCE IV Last administered on at 02:21; Start 09/28/18 at 02:30; Stop 09/28/18 at 03:29; Status DC Potassium Chloride/Water 100 ml @ 100 mls/hr Q1H IV Last administered on at 04:14; Start 09/28/18 at 03:00; Stop 09/28/18 at 05:00; Status DC Ceftriaxone Sodium (Rocephin) 1 gm 1X ONCE IVP Last administered on 09/28/18at 10:59; Start 09/28/18 at 05:30; Stop 09/28/18 at 05:31; Status DC Sodium Chloride 1,000 ml @ 125 mls/hr Q8H IV Last administered on 09/29/18at 01 :22; Start 09/28/18 at 05:30; Stop 09/29/18 at 05:29; Status DC Famotidine (Pepcid) 20 mg BID PO Last administered on 09/29/18at 09:33; Start at 21:00 Ibuprofen (Motrin) 600 mg PRN Q6HRS PRN PO INFLAMMATION; Start 09/28/18 at 13: 45 Ceftriaxone Sodium (Rocephin) 1 gm Q24H IVP Last administered on 09/28/18at 14: 40; Start 09/28/18 at 14:00 Potassium Chloride (Klor-Con) 40 meq 1X ONCE PO Last administered on at 14:40; Start 09/28/18 at 13:45; Stop 09/28/18 at 13:46; Status DC Potassium Chloride (Klor-Con) 20 meq DAILYWBKFT PO Last administered on at 09:33; Start 09/29/18 at 08:00 Potassium Chloride (Klor-Con) 40 meq 1X ONCE PO ; Start 09/28/18 at 22:00; Stop 09/28/18 at 22:01; Status DC Olanzapine (ZyPREXA) 5 mg PRN 1X PRN PO ANXIETY / AGITATION Last administered on 09/28/18at 21:28; Start 09/28/18 at 21:30 Active Scripts Active Ibuprofen 600 Mg Tablet 600 Mg PO PRN Q6HRS PRN Pepcid (Famotidine) 20 Mg Tablet 20 Mg PO BID Vitals/I & O Vital Sign - Last 24 Hours 09/28/18 09/28/18 09/28/18 09/28/18 10:35 15:00 19:00 20:10 Temp 98.2 98.1 98.2 98.1 Pulse 68 74 Resp 17 16 B/P (MAP) 120/79 (93) 137/77 (97) Pulse Ox 100 100 O2 Delivery Room Air Room Air Room Air Room Air 09/28/18 09/29/18 09/29/18 23:00 03:00 07:00 Temp 99.0 99.0 Pulse 71 92 Resp 18 18 B/P (MAP) 130/85 (100) 127/78 (94) Pulse Ox 98 100 O2 Delivery Room Air Intake and Output 09/28/18 09/28/18 09/29/18 14:59 22:59 06:59 Intake Total 500 ml 600 ml 0 ml Balance 500 ml 600 ml 0 ml СЕРГЕЙ HAMMER MD Sep 29, 2018 10:16
--- NOTE | 2018-09-29 10:43 | PDOC ---
PROGRESS NOTES Assessment Problems Medical Problems: (1) Altered mental status Status: Acute (2) Hypokalemia Status: Acute (3) UTI (urinary tract infection) Status: Acute Episode of noel in a patient with known bipolar disorder and schizophrenia. No neurological issues. Plan Psychiatric assessment team has been contacted. No neurological treatments or testing required Subjective Still not sleeping well, she says Objective Vital Signs Date Time Temp Pulse Resp B/P (MAP) Pulse Ox O2 Delivery O2 Flow Rate FiO2 09/29/18 07:00 99.0 92 18 127/78 (94) 100 Room Air 99.0 Intake and Output 09/29/18 07:00 Intake Total 1100 ml Balance 1100 ml Intake Oral 1100 ml # Voids 6 PHYSICAL EXAM Alert. Oriented to place and person, speaks some Estonian. PERRL. EOMI. CN: no focal findings. Muscle tone: normal. Muscle strength: 5/5 DTR: 2+ Plantar reflex: flexor Gait: not examined in bed. Sensory exam: no abnormal findings. No cerebellar signs elicited. Review of Relevant I have reviewed the following items zonia (where applicable) has been applied. Labs Laboratory Tests Test 09/28/18 02:15 09/28/18 22:30 09/29/18 04:25 White Blood Count 10.0 x10^3/uL (4.0-11.0) 9.7 x10^3/uL (4.0-11.0) Red Blood Count 4.70 x10^6/uL (3.50-5.40) 4.40 x10^6/uL (3.50-5.40) Hemoglobin 13.7 g/dL (12.0-15.5) 13.0 g/dL (12.0-15.5) Hematocrit 41.5 % (36.0-47.0) 39.2 % (36.0-47.0) Mean Corpuscular Volume 88 fL (79-100) 89 fL (79-100) Mean Corpuscular Hemoglobin 29 pg (25-35) 30 pg (25-35) Mean Corpuscular Hemoglobin Concent 33 g/dL (31-37) 33 g/dL (31-37) Red Cell Distribution Width 13.5 % (11.5-14.5) 13.5 % (11.5-14.5) Platelet Count 233 x10^3/uL (140-400) 205 x10^3/uL (140-400) Neutrophils (%) (Auto) 78 % (31-73) 75 % (31-73) Lymphocytes (%) (Auto) 15 % (24-48) 17 % (24-48) Monocytes (%) (Auto) 6 % (0-9) 7 % (0-9) Eosinophils (%) (Auto) 0 % (0-3) 1 % (0-3) Basophils (%) (Auto) 0 % (0-3) 0 % (0-3) Neutrophils # (Auto) 7.8 x10^3uL (1.8-7.7) 7.3 x10^3uL (1.8-7.7) Lymphocytes # (Auto) 1.5 x10^3/uL (1.0-4.8) 1.6 x10^3/uL (1.0-4.8) Monocytes # (Auto) 0.6 x10^3/uL (0.0-1.1) 0.7 x10^3/uL (0.0-1.1) Eosinophils # (Auto) 0.0 x10^3/uL (0.0-0.7) 0.1 x10^3/uL (0.0-0.7) Basophils # (Auto) 0.0 x10^3/uL (0.0-0.2) 0.0 x10^3/uL (0.0-0.2) Urine Collection Type Unknown Urine Color Yellow Urine Clarity Cloudy Urine pH 6.0 Urine Specific [place] 1.015 Urine Protein 30 mg/dL (NEG-TRACE) Urine Glucose (UA) Negative mg/dL (NEG) Urine Ketones (Stick) 40 mg/dL (NEG) Urine Blood Large (NEG) Urine Nitrite Negative (NEG) Urine Bilirubin Negative (NEG) Urine Urobilinogen Dipstick 1.0 mg/dL (0.2 mg/dL) Urine Leukocyte Esterase Moderate (NEG) Urine RBC Occ /HPF (0-2) Urine WBC 20-40 /HPF (0-4) Urine Squamous Epithelial Cells Mod /LPF Urine Bacteria Many /HPF (0-FEW) Urine Mucus Mod /LPF Urine Test Negative (NEG) Sodium Level 142 mmol/L (136-145) 140 mmol/L (136-145) Potassium Level 2.9 mmol/L (3.5-5.1) 3.4 mmol/L (3.5-5.1) 3.3 mmol/L (3.5-5.1) Chloride Level 102 mmol/L (98-107) 104 mmol/L (98-107) Carbon Dioxide Level 26 mmol/L (21-32) 24 mmol/L (21-32) Anion Gap 14 (6-14) 12 (6-14) Blood Urea Nitrogen 9 mg/dL (7-20) 5 mg/dL (7-20) Creatinine 0.6 mg/dL (0.6-1.0) 0.5 mg/dL (0.6-1.0) Estimated GFR (Cockcroft-Gault) 109.6 135.3 BUN/Creatinine Ratio 15 (6-20) Glucose Level 129 mg/dL (70-99) 95 mg/dL (70-99) Calcium Level 8.9 mg/dL (8.5-10.1) 8.3 mg/dL (8.5-10.1) Magnesium Level 2.0 mg/dL (1.8-2.4) Total Bilirubin 0.7 mg/dL (0.2-1.0) Aspartate Amino Transf (AST/SGOT) 16 U/L (15-37) Alanine Aminotransferase (ALT/SGPT) 14 U/L (14-59) Alkaline Phosphatase 52 U/L (46-116) Total Protein 8.7 g/dL (6.4-8.2) Albumin 4.5 g/dL (3.4-5.0) Albumin/Globulin Ratio 1.1 (1.0-1.7) Free Thyroxine 1.38 ng/dL (0.76-1.46) Urine Opiates Screen Neg (NEG) Urine Methadone Screen Neg (NEG) Urine Barbiturates Neg (NEG) Urine Phencyclidine Screen Neg (NEG) Urine Amphetamine/Methamphetamine Neg (NEG) Urine Benzodiazepines Screen Neg (NEG) Urine Cocaine Screen Neg (NEG) Urine Cannabinoids Screen Neg (NEG) Urine Ethyl Alcohol Neg (NEG) Treponema pallidum Antibody Nonreactive (Nonreactive) Laboratory Tests Test 09/28/18 22:30 09/29/18 04:25 Potassium Level 3.4 mmol/L (3.5-5.1) 3.3 mmol/L (3.5-5.1) White Blood Count 9.7 x10^3/uL (4.0-11.0) Red Blood Count 4.40 x10^6/uL (3.50-5.40) Hemoglobin 13.0 g/dL (12.0-15.5) Hematocrit 39.2 % (36.0-47.0) Mean Corpuscular Volume 89 fL (79-100) Mean Corpuscular Hemoglobin 30 pg (25-35) Mean Corpuscular Hemoglobin Concent 33 g/dL (31-37) Red Cell Distribution Width 13.5 % (11.5-14.5) Platelet Count 205 x10^3/uL (140-400) Neutrophils (%) (Auto) 75 % (31-73) Lymphocytes (%) (Auto) 17 % (24-48) Monocytes (%) (Auto) 7 % (0-9) Eosinophils (%) (Auto) 1 % (0-3) Basophils (%) (Auto) 0 % (0-3) Neutrophils # (Auto) 7.3 x10^3uL (1.8-7.7) Lymphocytes # (Auto) 1.6 x10^3/uL (1.0-4.8) Monocytes # (Auto) 0.7 x10^3/uL (0.0-1.1) Eosinophils # (Auto) 0.1 x10^3/uL (0.0-0.7) Basophils # (Auto) 0.0 x10^3/uL (0.0-0.2) Sodium Level 140 mmol/L (136-145) Chloride Level 104 mmol/L (98-107) Carbon Dioxide Level 24 mmol/L (21-32) Anion Gap 12 (6-14) Blood Urea Nitrogen 5 mg/dL (7-20) Creatinine 0.5 mg/dL (0.6-1.0) Estimated GFR (Cockcroft-Gault) 135.3 Glucose Level 95 mg/dL (70-99) Calcium Level 8.3 mg/dL (8.5-10.1) Medications Current Medications Sodium Chloride 1,000 ml @ 1,000 mls/hr 1X ONCE IV Last administered on at 02:21; Start 09/28/18 at 02:30; Stop 09/28/18 at 03:29; Status DC Potassium Chloride/Water 100 ml @ 100 mls/hr Q1H IV Last administered on at 04:14; Start 09/28/18 at 03:00; Stop 09/28/18 at 05:00; Status DC Ceftriaxone Sodium (Rocephin) 1 gm 1X ONCE IVP Last administered on 09/28/18at 10:59; Start 09/28/18 at 05:30; Stop 09/28/18 at 05:31; Status DC Sodium Chloride 1,000 ml @ 125 mls/hr Q8H IV Last administered on 09/29/18at 01 :22; Start 09/28/18 at 05:30; Stop 09/29/18 at 05:29; Status DC Famotidine (Pepcid) 20 mg BID PO Last administered on 09/29/18at 09:33; Start at 21:00 Ibuprofen (Motrin) 600 mg PRN Q6HRS PRN PO INFLAMMATION; Start 09/28/18 at 13: 45 Ceftriaxone Sodium (Rocephin) 1 gm Q24H IVP Last administered on 09/28/18at 14: 40; Start 09/28/18 at 14:00 Potassium Chloride (Klor-Con) 40 meq 1X ONCE PO Last administered on at 14:40; Start 09/28/18 at 13:45; Stop 09/28/18 at 13:46; Status DC Potassium Chloride (Klor-Con) 20 meq DAILYWBKFT PO Last administered on at 09:33; Start 09/29/18 at 08:00 Potassium Chloride (Klor-Con) 40 meq 1X ONCE PO ; Start 09/28/18 at 22:00; Stop 09/28/18 at 22:01; Status DC Olanzapine (ZyPREXA) 5 mg PRN 1X PRN PO ANXIETY / AGITATION Last administered on 09/28/18at 21:28; Start 09/28/18 at 21:30 Active Scripts Active Ibuprofen 600 Mg Tablet 600 Mg PO PRN Q6HRS PRN Pepcid (Famotidine) 20 Mg Tablet 20 Mg PO BID Vitals/I & O Vital Sign - Last 24 Hours 09/28/18 09/28/18 09/28/1819 15:00 19:00 20:10 23:00 Temp 98.1 98.1 Pulse 74 71 Resp 16 18 B/P (MAP) 137/77 (97) 130/85 (100) Pulse Ox 100 98 O2 Delivery Room Air Room Air Room Air 09/29/18 09/29/18 03:00 07:00 Temp 99.0 99.0 Pulse 92 Resp 18 B/P (MAP) 127/78 (94) Pulse Ox 100 O2 Delivery Room Air Intake and Output 09/28/18 09/28/18 09/29/18 15:00 23:00 07:00 Intake Total 500 ml 600 ml 0 ml Balance 500 ml 600 ml 0 ml PRECIOUS VOSS MD Sep 29, 2018 10:43
[2018-09-29 11:00] VITALS: BP 129/74
[2018-09-29] MEDS ORDERED: OLANZapine 5 MG TABLET PO SCH (12:00)
[2018-09-29] MEDS ORDERED: LORazepam 1 MG TABLET PO PRN (12:00)
[2018-09-29] MEDS: cefTRIAXone IV Push 1 GM VIAL. IVP SCH (14:00)
[2018-09-29 15:00] VITALS: BP 124/73
--- NOTE | 2018-09-29 15:49 | NUR ---
SW spoke with Physician regarding PAT team recommendation as pt is not meeting criteria for inpatient psych placement at this time. Physician reported to encourage food, fluids intake today and plan on discharging pt home tomorrow. Discussed with RN and Philly from PAT team.
--- NOTE | 2018-09-29 16:23 | NUR ---
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 SW provided Lanette with [facility] information and informed they are able to do a walk in or call to schedule an assessment. SW discussed the services provided and encouraged them to make an appointment. Discussed with RN and Michael from PAT team.
[2018-09-29] MEDS ORDERED: LORazepam 1 MG TABLET PO SCH (21:00)
--- NOTE | 2018-09-30 10:34 | PDOC3 ---
Discharge Summary Date of Admission: Sep 28, 2018 Date of Discharge: Sep 29, 2018 Follow-Up: 1-2 days Admitting Diagnosis comment: discharge dx Altered mental status ACUTE LIBBY severe acute malnutrition Hypokalemia, correcting UTI (urinary tract infection) HX BIPOLAR DISEASE NONCOMPLIANCE WITH PSYCH F/U No intracranial hemorrhage, mass, hydrocephalus or infarction. No acute ischemic change. 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 09/29 still not eating or drinking fluids, withdrawn, noncooperative. , appears to have loose associations with reality, false perceptions of disease state d/w [facility] in [place] at [facility] to go to [facility] 09/30 ASHLI PLAN d/c today zyprexa 5 mg po daily, PAT TEAM TO SEE NEUROLOGY CONSULT T4 DVT PROPHYLAXIS HOME MEDS IV ROCEPHIN po k 42 min pt exam d/c planning , chart review, > 50% of time spent with exam, chart review, pt care coordination Vitals Vitals Vital Signs Date Time Temp Pulse Resp B/P (MAP) Pulse Ox O2 Delivery O2 Flow Rate FiO2 09/29/18 07:00 99.0 92 18 127/78 (94) 100 Room Air 99.0 Physical Exam General: Alert, Cooperative, mild distress, moderate distress Heart: Regular rate, No murmurs Lungs: Clear Abdomen: Normal bowel sounds, Soft, No tenderness, No hepatosplenomegaly Extremities: No cyanosis, No edema, Normal pulses, No tenderness/swelling Skin: No rashes FINAL DIAGNOSIS Problems Medical Problems: (1) Altered mental status Status: Acute (2) Hypokalemia Status: Acute (3) UTI (urinary tract infection) Status: Acute Brief Hospital Course Ms. Hernandez is a 42 old [sex] who presented with [ ACUTE DEHYDRATION, SEVERE LIBBY ] CONDITION AT DISCHARGE: Improved Discharge Medications Current Medications Sodium Chloride 1,000 ml @ 1,000 mls/hr 1X ONCE IV Last administered on at 02:21; Start 09/28/18 at 02:30; Stop 09/28/18 at 03:29; Status DC Potassium Chloride/Water 100 ml @ 100 mls/hr Q1H IV Last administered on at 04:14; Start 09/28/18 at 03:00; Stop 09/28/18 at 05:00; Status DC Ceftriaxone Sodium (Rocephin) 1 gm 1X ONCE IVP Last administered on 09/28/18at 10:59; Start 09/28/18 at 05:30; Stop 09/28/18 at 05:31; Status DC Sodium Chloride 1,000 ml @ 125 mls/hr Q8H IV Last administered on 09/29/18at 01 :22; Start 09/28/18 at 05:30; Stop 09/29/18 at 05:29; Status DC Famotidine (Pepcid) 20 mg BID PO Last administered on 09/29/18at 09:33; Start at 21:00; Stop 09/29/18 at 18:37; Status DC Ibuprofen (Motrin) 600 mg PRN Q6HRS PRN PO INFLAMMATION; Start 09/28/18 at 13: 45; Stop 09/29/18 at 18:37; Status DC Ceftriaxone Sodium (Rocephin) 1 gm Q24H IVP Last administered on 09/28/18at 14: 40; Start 09/28/18 at 14:00; Stop 09/29/18 at 18:37; Status DC Potassium Chloride (Klor-Con) 40 meq 1X ONCE PO Last administered on at 14:40; Start 09/28/18 at 13:45; Stop 09/28/18 at 13:46; Status DC Potassium Chloride (Klor-Con) 20 meq DAILYWBKFT PO Last administered on at 09:33; Start 09/29/18 at 08:00; Stop 09/29/18 at 18:37; Status DC Potassium Chloride (Klor-Con) 40 meq 1X ONCE PO ; Start 09/28/18 at 22:00; Stop 09/28/18 at 22:01; Status DC Olanzapine (ZyPREXA) 5 mg PRN 1X PRN PO ANXIETY / AGITATION Last administered on 09/28/18at 21:28; Start 09/28/18 at 21:30; Stop 09/29/18 at 18:37; Status DC Olanzapine (ZyPREXA) 5 mg DAILY PO Last administered on 09/29/18at 12:03; Start 09/29/18 at 12:00; Stop 09/29/18 at 18:37; Status DC Lorazepam (Ativan) 1 mg PRN Q6HRS PRN PO ANXIETY / AGITATION Last administered on 09/29/18at 12:03; Start 09/29/18 at 12:00; Stop 09/29/18 at 18:37; Status DC Lorazepam (Ativan) 1 mg QHS PO ; Start 09/29/18 at 21:00; Stop 09/29/18 at 21:00 ; Status DC Active Scripts Active Ibuprofen 600 Mg Tablet 600 Mg PO PRN Q6HRS PRN Pepcid (Famotidine) 20 Mg Tablet 20 Mg PO BID Vital Signs Vital Signs Date Time Temp Pulse Resp B/P (MAP) Pulse Ox O2 Delivery O2 Flow Rate FiO2 09/29/18 15:00 99.1 99 18 124/73 (90) 100 Room Air 99.1 Labs Laboratory Tests Test 09/28/18 22:30 09/29/18 04:25 Potassium Level 3.4 mmol/L (3.5-5.1) 3.3 mmol/L (3.5-5.1) White Blood Count 9.7 x10^3/uL (4.0-11.0) Red Blood Count 4.40 x10^6/uL (3.50-5.40) Hemoglobin 13.0 g/dL (12.0-15.5) Hematocrit 39.2 % (36.0-47.0) Mean Corpuscular Volume 89 fL (79-100) Mean Corpuscular Hemoglobin 30 pg (25-35) Mean Corpuscular Hemoglobin Concent 33 g/dL (31-37) Red Cell Distribution Width 13.5 % (11.5-14.5) Platelet Count 205 x10^3/uL (140-400) Neutrophils (%) (Auto) 75 % (31-73) Lymphocytes (%) (Auto) 17 % (24-48) Monocytes (%) (Auto) 7 % (0-9) Eosinophils (%) (Auto) 1 % (0-3) Basophils (%) (Auto) 0 % (0-3) Neutrophils # (Auto) 7.3 x10^3uL (1.8-7.7) Lymphocytes # (Auto) 1.6 x10^3/uL (1.0-4.8) Monocytes # (Auto) 0.7 x10^3/uL (0.0-1.1) Eosinophils # (Auto) 0.1 x10^3/uL (0.0-0.7) Basophils # (Auto) 0.0 x10^3/uL (0.0-0.2) Sodium Level 140 mmol/L (136-145) Chloride Level 104 mmol/L (98-107) Carbon Dioxide Level 24 mmol/L (21-32) Anion Gap 12 (6-14) Blood Urea Nitrogen 5 mg/dL (7-20) Creatinine 0.5 mg/dL (0.6-1.0) Estimated GFR (Cockcroft-Gault) 135.3 Glucose Level 95 mg/dL (70-99) Calcium Level 8.3 mg/dL (8.5-10.1) Allergies Allergies Coded Allergies Type Severity Reaction Last Updated Verified No Known Drug Allergies 10/25/14 No Disposition/Orders: D/C to Home Patient Instructions D/C PLANNING 43 MIN СЕРГЕЙ HAMMER MD Sep 30, 2018 10:34
== END 2018-09-29 18:05 | disposition home or self-care (01) | DRG 690 ==
LOC: ER 01:25 → 5 NORTH 04:50 → 6 SOUTH 06:32
PROVIDERS: ADMIT Internal Medicine; ATTEND Internal Medicine
DX: N39.0 Urinary tract infection, site not specified (principal); F30.9 Manic episode, unspecified; E46 Unspecified protein-calorie malnutrition; E87.6 Hypokalemia; E86.0 Dehydration; F20.9 Schizophrenia, unspecified; D16.9 Benign neoplasm of bone and articular cartilage, unspecified; Z82.49 Family history of ischemic heart disease and other diseases of the circulatory system; Z91.19 Patient's noncompliance with other medical treatment and regimen
CPT/HCPCS: 36415; 70450; 80048; 80053; 80307; 81001; 81025; 83735; 84132; 84439; 85025; 86592; 87086; J0696; J3480; J7030

== ENCOUNTER 2019-07-11 13:10 | Emergency (ER) | payer MEDICAID, OTHER ==
[~2019-07-11] VITALS: Ht 160 cm; Wt 63.6 kg
[2019-07-11 13:35] VITALS: BP 130/77
--- NOTE | 2019-07-11 15:23 | PHYS DOC ---
Past Medical History Past Medical History: No Pertinent History Past Surgical History: Other Additional Past Surgical Histo: L arm surgery Alcohol Use: None Drug Use: None Adult General Chief Complaint Chief Complaint: OTHER COMPLAINTS HPI HPI Patient is a 43 year old female who presents with alert and oriented and states that this morning she began feeling worried. She states she began talking out loud and came very worried. She denies SI or HI or hearing voices. She denies any pain. She states she is safe at home and nobody is harming her. She states that she just became worried about things. She is not able to elaborate on what she was worried about. She states it just happened and came on suddenly. Review of Systems Review of Systems Constitutional: Denies fever or chills. Worried. [] All other systems were reviewed and found to be within normal limits, except as documented in this note. Allergies Allergies Allergies Coded Allergies Type Severity Reaction Last Updated Verified No Known Drug Allergies 10/25/14 No Physical Exam Physical Exam Constitutional: Well developed, well nourished, no acute distress, non-toxic appearance. [] HENT: Normocephalic, atraumatic, bilateral external ears normal, oropharynx moist, no oral exudates, nose normal. [] Eyes: PERRLA, EOMI, conjunctiva normal, no discharge. [] Neck: Normal range of motion, no tenderness, supple, no stridor. [] Cardiovascular:Heart rate regular rhythm, no murmur [] Lungs & Thorax: Bilateral breath sounds clear to auscultation [] Abdomen: Bowel sounds normal, soft, no tenderness, no masses, no pulsatile masses. [] Skin: Warm, dry, no erythema, no rash. [] Back: No tenderness, no CVA tenderness. [] Extremities: No tenderness, no cyanosis, no clubbing, ROM intact, no edema. [] Neurologic: Alert and oriented X 3, normal motor function, normal sensory function, no focal deficits noted. [] Psychologic: Affect normal, judgement normal, mood normal. Normal physical exam[] Current Patient Data Vital Signs Vital Signs Date Time Temp Pulse Resp B/P (MAP) Pulse Ox O2 Delivery O2 Flow Rate FiO2 07/11/19 13:35 98.3 80 16 130/77 (94) 98 Room Air 98.3 EKG EKG [] Radiology/Procedures Radiology/Procedures [] Course & Med Decision Making Course & Med Decision Making This sounds much like a panic attack or anxiety. Patient states she is feeling much better upon walking in the room and states she is going to leave. She is alert and oriented. Speaks in full clear sentences. She does speak good [place]. Michael from [facility] team when I spoke with the patient. He states that it sounds like she was having a panic or anxiety attack. She states she is totally fine to go home to follow up with [facility]. He states that she has been [facility] before for schizophrenia and was on medication but is no longer taking the medication. Vital signs are within normal limits. Patient has no other complaints. Patient refuses any blood work or any other medical screenings. Patient is stable and is sent home with resources. Michael from [facility] team also states that he knows her correctional case records supervisor and he is going to call her resolution analyst so they can follow up with her also. PERRLA. Patient denies nausea, vomiting, abdominal pain, hearing voices, SI, HI, visual hallucinations, visual changes, chest pain, shortness of air, diarrhea, fevers, recent illness, headache, dizziness, syncope. Dragon Disclaimer Dragon Disclaimer This electronic medical record was generated, in whole or in part, using a voice recognition dictation system. Departure Departure Impression: Primary Impression: Encounter for medical screening examination Disposition: 01 HOME, SELF-CARE Condition: STABLE Referrals: NO PCP (PCP) Patient Instructions: Anxiety and Panic Attacks, [id number], Medical Screening Exam Additional Instructions: Follow-up with [facility] as soon as possible. AERLE RAMIREZ STRATEGIC ADVISOR Jul 11, 2019 15:23
== END 2019-07-11 15:45 | disposition home or self-care (01) ==
LOC: ER 13:10
DX: R45.82 Worries (principal)
CPT/HCPCS: 99281

== ENCOUNTER 2021-01-23 20:00 | Emergency (ER) | payer MEDICAID ==
[2021-01-23 20:20] VITALS: BP 131/77
== END 2021-01-24 02:26 | disposition left against medical advice (07) ==
LOC: ER 20:00
DX: R10.9 Unspecified abdominal pain (principal); Z53.21 Procedure and treatment not carried out due to patient leaving prior to being seen by health care provider

== ENCOUNTER 2021-02-01 02:08 | Emergency (ER) | payer MEDICAID | END 2021-02-01 02:20 | disposition left against medical advice (07) | LOC: ER 02:08 | DX: M54.9 Dorsalgia, unspecified (principal); Z53.21 Procedure and treatment not carried out due to patient leaving prior to being seen by health care provider ==